=== PATIENT | male | born 1965 | race Caucasian/White ===

== ENCOUNTER → 2017-07-19 | Outpatient (CLI) | payer BC | END | disposition home or self-care (01) | LOC: HKI 14:39 | DX: M87.852 Other osteonecrosis, left femur (principal); Z96.641 Presence of right artificial hip joint | CPT/HCPCS: G0463 ==

== ENCOUNTER 2017-09-26 05:37 | Inpatient (IN) | payer BC ==
[2017-09-26] MEDS ORDERED: CEFAZOLIN SODIUM 2GM/D5W 50 X1 IVPB (06:00)
[2017-09-26] MEDS: ONDANSETRON 4 MG INJ IV ×5 (06:16→21:39)
[2017-09-26] MEDS: LANSOPRAZOLE 30 MG CAP PO (06:16)
[2017-09-26] MEDS: DEXAMETHASONE 4 MG/ML 1 ML INJ IV (06:16)
[2017-09-26] MEDS: LACTATED RINGER'S 1,000 ML IV ×2 (06:17→14:00)
[2017-09-26] MEDS ORDERED: POLYMYXIN B 500000 UNIT INJ (06:53)
[2017-09-26] MEDS: MIDAZOLAM 1 MG/ML 2 ML INJ IV (06:54)
[2017-09-26] MEDS: ACETAMINOPHEN 1000MG/100ML IV 100 ML IVPB (07:07)
[2017-09-26] MEDS ORDERED: CEFAZOLIN 1 GM INJ (07:29)
[2017-09-26] MEDS ORDERED: NEOSTIGMINE 3 MG/3 ML SYRINGE (07:29)
[2017-09-26] MEDS ORDERED: GLYCOPYRROLATE 0.4 MG INJ (07:29)
[2017-09-26] MEDS ORDERED: PROPOFOL 20 ML (07:29)
[2017-09-26] MEDS ORDERED: ROCURONIUM 50 MG INJ (07:29)
[2017-09-26] MEDS ORDERED: DEXAMETHASONE 4 MG/ML 1 ML INJ (07:31)
[2017-09-26] MEDS ORDERED: FENTAnyl 50 MCG/ML VIAL (07:31)
[2017-09-26] MEDS ORDERED: ONDANSETRON 4 MG INJ (07:31)
[2017-09-26] MEDS ORDERED: MIDAZOLAM 1 MG/ML 2 ML INJ (07:31)
[2017-09-26] MEDS ORDERED: BUPIVACAINE 0.75%/DEXT (SPINAL) 2 ML INJ (07:33)
[2017-09-26] MEDS: TRANEXAMIC ACID 1,000 MG in D5W 100 ML AT INCISION X1 IVPB (08:28)
[2017-09-26] MEDS ORDERED: FENTAnyl 50 MCG/ML VIAL IV ×3 (08:30)
[2017-09-26] MEDS ORDERED: IPRATROPIUM (NEB) 0.5 MG/2.5 ML AMP HHN (08:30)
[2017-09-26] MEDS ORDERED: EPHEDrine SULFATE 50 MG/5 ML SYG IV (08:30)
[2017-09-26] MEDS ORDERED: TRIMETHOBENZAMIDE 100 MG/ML VIAL IM ×2 (08:30→09:30)
[2017-09-26] MEDS ORDERED: ALBUTEROL 0.083% (NEB) 2.5 MG/3 ML AMP HHN (08:30)
[2017-09-26] MEDS ORDERED: MIDAZOLAM 1 MG/ML 2 ML INJ IV (08:30)
[2017-09-26] MEDS ORDERED: hydrALAzine 20 MG INJ IV (08:30)
[2017-09-26] MEDS ORDERED: HYDROmorphONE (0.2 MG/ML) 10ML SYG IV ×3 (08:30)
[2017-09-26] MEDS ORDERED: LABETALOL HCL 20MG INJ IV (08:30)
[2017-09-26] MEDS ORDERED: OXYCODONE/ACETAMINOPHEN (5/325) TAB PO ×2 (08:30)
[2017-09-26] MEDS: POLYMYXIN B 500000 UNIT INJ IRR (08:37)
[2017-09-26] MEDS: BACITRACIN 50000 UNITS INJ (08:37)
[2017-09-26] MEDS ORDERED: SUGAMMADEX SODIUM 200 MG/2 ML VIAL IV (09:25)
[2017-09-26] MEDS: TRANEXAMIC ACID 1,000 MG in D5W 100 ML AT CLOSURE X1 IVPB (09:26)
[2017-09-26] MEDS ORDERED: BISACODYL 10 MG SUPP PR (09:30)
[2017-09-26] MEDS ORDERED: NACL 0.9% 3 ML SYG IV (09:30)
[2017-09-26] MEDS ORDERED: SENNA/DOCUSATE NA (8.6MG/50MG) TAB PO (09:30)
[2017-09-26] MEDS ORDERED: NA PHOSPHATE/BIPHOS 133 ML ENEMA PR (09:30)
[2017-09-26] MEDS ORDERED: BETHANECHOL 25 MG TAB PO (09:30)
[2017-09-26] MEDS ORDERED: MAGNESIUM HYDROXIDE 30ML CUP PO (09:30)
[2017-09-26] MEDS ORDERED: DIPHENHYDRAMINE 50 MG INJ IV (09:30)
[2017-09-26] MEDS ORDERED: NALOXONE (0.4 MG/ML) INJ IV (09:30)
[2017-09-26] MEDS: MEPERIDINE 25 MG INJ IV (09:53)
[2017-09-26] MEDS: ASPIRIN (EC) 325 MG TAB PO (09:53)
[2017-09-26] MEDS: DIPHENHYDRAMINE 50 MG INJ IV (09:54)
[2017-09-26] MEDS: DOCUSATE SODIUM 100 MG CAP PO (09:55)
[2017-09-26] MEDS: CEFAZOLIN 1 GM/50 ML (PMX) 50 ML IVPB ×2 (09:55→17:42)
[2017-09-26] MEDS: SOD CHLORIDE 0.9% 1,000 ML IV ×2 (11:12→21:39)
[2017-09-26] MEDS: oxyCODONE 5 MG TAB PO ×3 (14:06→19:38)
[2017-09-26] MEDS: VALACYCLOVIR 500 MG TAB PO (20:24)
[2017-09-26] MEDS: GABAPENTIN 100 MG CAP PO (20:24)
[2017-09-26] MEDS: ZOLPIDEM 5 MG TAB PO (21:38)
[2017-09-27] MEDS: oxyCODONE 5 MG TAB PO ×3 (00:14→16:39)
[2017-09-27] MEDS: CEFAZOLIN 1 GM/50 ML (PMX) 50 ML IVPB (01:35)
[2017-09-27] MEDS: KETOROLAC 15 MG INJ IV (01:35)
[2017-09-27] MEDS: ONDANSETRON 4 MG INJ IV (03:30)
[2017-09-27] MEDS: PANTOPRAZOLE (EC) 40 MG TAB PO (06:00)
[2017-09-27 06:15] LABS: ADD MAN DIFF? NO
[2017-09-27 06:25] LABS: BASOPHILS % 0.1 % (0.0-2.0); EOSINOPHILS % 0.1 % (0.0-7.0); HEMATOCRIT 38.9 % (42.0-52.0); HEMOGLOBIN 12.8 g/dl (14.0-18.0); LYMPHOCYTES # 1.7 10^3/ul (0.8-2.9); LYMPHOCYTES % 12.8 % (15.0-51.0); MEAN CORPUSCULAR HEMOGLOBIN 30.7 pg (29.0-33.0); MEAN CORPUSCULAR HGB CONC 32.9 g/dl (32.0-37.0); MEAN CORPUSCULAR VOLUME 93.3 fl (82.0-101.0); MEAN PLATELET VOLUME 10.4 fl (7.4-10.4); MONOCYTE # 1.1 10^3/ul (0.3-0.9); MONOCYTES % 8.1 % (0.0-11.0); NEUTROPHIL # 10.5 10^3/ul (1.6-7.5); NEUTROPHILS % 78.3 % (39.0-77.0); PLATELET COUNT 160 10^3/UL (140-415); RED BLOOD COUNT 4.17 10^6/ul (4.70-6.10); RED CELL DISTRIBUTION WIDTH 14.5 % (11.5-14.5)
[2017-09-27 06:25] LABS: WHITE BLOOD COUNT 13.5 10^3/ul (4.8-10.8)
[2017-09-27 06:57] LABS: ANION GAP 12 (8-16); BLOOD UREA NITROGEN 20 mg/dl (7-20); CALCIUM 8.5 mg/dl (8.4-10.2); CARBON DIOXIDE 28 mmol/L (21-31); CHLORIDE 108 mmol/L (97-110); CREATININE 0.98 mg/dl (0.61-1.24); GLUCOSE 132 mg/dl (70-220); POTASSIUM 4.8 mmol/L (3.5-5.1); SODIUM 143 mmol/L (135-144)
[2017-09-27] MEDS: FERROUS FUMARATE (SR) TAB PO (08:55)
[2017-09-27] MEDS: CELECOXIB 100 MG CAP PO (08:55)
[2017-09-27] MEDS: GABAPENTIN 100 MG CAP PO (08:55)
[2017-09-27] MEDS: ASPIRIN (EC) 325 MG TAB PO (08:55)
[2017-09-27] MEDS: DOCUSATE SODIUM 100 MG CAP PO (08:55)
[2017-09-27] MEDS: VALACYCLOVIR 500 MG TAB PO (08:57)
[2017-09-27] MEDS: SOD CHLORIDE 0.9% 1,000 ML IV (10:18)
== END 2017-09-27 17:33 | disposition home health service (06) | DRG 470 ==
LOC: REC 05:37 → MS1 10:35
PROC: 0SRB04A Replacement of Left Hip Joint with Ceramic on Polyethylene Synthetic Substitute, Uncemented, Open Approach (ICD-10-PCS; principal; 2017-09-26 07:30)
DX: M87.852 Other osteonecrosis, left femur (principal); A60.01 Herpesviral infection of penis
CPT/HCPCS: 73530; 80048; 85025; 86850; 86900; 86901; 87081; 87086; 97116; 97162; 97165; 97530

== ENCOUNTER → 2017-10-14 | Outpatient (CLI) | payer BC | END | disposition home or self-care (01) | LOC: HKI 10:22 | DX: Z47.1 Aftercare following joint replacement surgery (principal); Z96.642 Presence of left artificial hip joint | CPT/HCPCS: 73502; 73562-LT ==

== ENCOUNTER → 2017-11-11 | Outpatient (CLI) | payer BC | END | disposition home or self-care (01) | LOC: HKI 11:11 | DX: Z47.1 Aftercare following joint replacement surgery (principal); Z96.642 Presence of left artificial hip joint | CPT/HCPCS: 73502 ==